=== PATIENT | male | born 1965 | race Caucasian/White ===

== ENCOUNTER 2017-10-06 09:53 | Day surgery (SDC) | payer BC ==
[2017-10-06] MEDS ORDERED: Sodium Chloride 0.9% 1,000 ML IV SCH (12:15)
[2017-10-06] MEDS ORDERED: Propofol 1,000 MG/100 ML SDV ONE (15:25)
--- NOTE | 2017-10-06 20:35 | OR ---
DATE OF OPERATION: 10/06/2017 PREOPERATIVE DIAGNOSIS: Screening colonoscopy. POSTOPERATIVE DIAGNOSIS: Screening colonoscopy. ANESTHESIA: MAC. PROCEDURE: Colonoscopy. ESTIMATED BLOOD LOSS: None. COMPLICATIONS: None. INDICATIONS FOR THE PROCEDURE: The patient is a 52-year-old male, who is here today for screening colonoscopy. He has not had any previous colonoscopy. He has no change in bowel habits. No family history. DESCRIPTION OF PROCEDURE: Informed consent was obtained from the patient. The patient was taken to the operating room and placed on table in left lateral decubitus position. Monitored anesthesia care was applied. The patient did have a rectal exam performed, no masses, good rectal tone. Colonoscope was then advanced through the anus, and directed toward the cecum. Cecum was identified by the appendiceal orifice, as well as the ileocecal valve. Colonoscope was slowly withdrawn. No masses, no polyps, no areas of AV malformations, no areas of ischemia or inflammation were identified. Retroflexion was performed in the rectum and was normal as well. Colonoscope was then removed. FINDINGS: Normal colonoscopy. RECOMMENDATIONS: Would recommend repeat screening colonoscopy in 10 years. MIGUELINA/JONATHAN /[id number]
== END 2017-10-06 16:40 | disposition home or self-care (01) ==
LOC: LB.SDS 09:53
PROVIDERS: ATTEND Surgery
DX: Z12.11 Encounter for screening for malignant neoplasm of colon (principal); R73.09 Other abnormal glucose; Z90.49 Acquired absence of other specified parts of digestive tract
CPT/HCPCS: 45378; 82962; J7040; J3490

== ENCOUNTER 2022-05-24 07:58 | Day surgery (SDC) | payer BC ==
[~2022-05-24 07:58] MED LIST: Acetaminophen/HYDROcodone 325-5 MG Tab PO PRN; Lactated Ringers 1,000 ML IV SCH
[2022-05-24] MEDS: Lactated Ringers 1,000 ML IV SCH (08:28)
[2022-05-24] MEDS: ceFAZolin 1 GM in Sodium Chloride 0.9% 50 ML IV SCH (09:37)
[2022-05-24] MEDS ORDERED: Midazolam 1 MG/ML 2 ML SDV ONE (10:00)
[2022-05-24] MEDS ORDERED: fentaNYL 100 MCG/2 ML SDV ONE (10:00)
[2022-05-24] MEDS ORDERED: Lidocaine 0.5% 50 ML SDV ONE (10:00)
[2022-05-24] MEDS ORDERED: Ondansetron 4 MG/2 ML SDV ONE (10:00)
== END 2022-05-24 11:03 | disposition home or self-care (01) ==
LOC: LB.SDS 07:58
PROVIDERS: ATTEND Orthopaedic Surgery
DX: G56.02 Carpal tunnel syndrome, left upper limb (principal); R73.03 Prediabetes; Z90.49 Acquired absence of other specified parts of digestive tract; Z98.890 Other specified postprocedural states
CPT/HCPCS: J0690; J2250; J2405; J3010; J7120